=== PATIENT | female | born 1990 | race Caucasian/White ===

== ENCOUNTER 2019-11-07 21:32 | Emergency (ER) | payer MEDICAID ==
[~2019-11-07] VITALS: Ht 157.5 cm; Wt 84.4 kg
[2019-11-07 21:33] VITALS: Ht 157.5 cm; Wt 84.4 kg
[2019-11-07 22:25] VITALS: BP 135/83
== END 2019-11-07 22:25 | disposition home or self-care (01) ==
LOC: ED 21:32
DX: J02.9 Acute pharyngitis, unspecified (principal)

== ENCOUNTER 2020-02-14 18:22 | Emergency (ER) | payer OTHER ==
[~2020-02-14] VITALS: Ht 157.5 cm; Wt 84.4 kg
[2020-02-14 18:25] VITALS: Ht 157.5 cm; Wt 84.4 kg
[2020-02-14 18:43] LABS: microscopic required? NO
[2020-02-14 19:11] VITALS: BP 125/59
[2020-02-14 19:20] LABS: UA SPECIFIC GRAVITY >=1.030 (1.005-1.035); urine erythrocyte NEGATIVE (NEGATIVE)
== END 2020-02-14 19:06 | disposition home or self-care (01) ==
LOC: ED 18:22
PROVIDERS: Emergency Medicine
DX: R30.0 Dysuria (principal); R30.9 Painful micturition, unspecified

== ENCOUNTER 2020-05-11 15:52 | Emergency (ER) | payer OTHER ==
[~2020-05-11] VITALS: Ht 157.5 cm; Wt 85.7 kg
[2020-05-11 16:30] VITALS: Ht 157.5 cm; Wt 85.7 kg
[2020-05-11 18:28] LABS: UA SPECIFIC GRAVITY >=1.030 (1.005-1.035); microscopic required? YES; urine erythrocyte NEGATIVE (NEGATIVE)
[2020-05-11 19:00] VITALS: BP 130/76
== END 2020-05-11 19:00 | disposition home or self-care (01) ==
LOC: ED 15:52
PROVIDERS: Emergency Medicine
DX: R30.0 Dysuria (principal); N94.10 Unspecified dyspareunia; R10.30 Lower abdominal pain, unspecified; R10.817 Generalized abdominal tenderness
CPT/HCPCS: J1885